=== PATIENT | female | born 1940 | race Caucasian/White ===

== ENCOUNTER 2016-08-16 06:31 | Day surgery (SDC) | payer MEDICARE ==
--- NOTE | ~2016-08-16 | EGD ---
EGD REPORT [facility] [address] [address] NAME: UMBERTO HELTON : 40 STATUS : REG [facility] [place] PAT#: [id number] AGE: 75 ADM/REG DATE : 08/16/16 MR#: [id number] REPORT SERV DATE: 08/16/16 DICTATED BY: MAIRA PALOMARES DATE: 08/16/16 REPORT STATUS : Draft TRANSCRIBED BY: [facility] DATE: 08/16/16 [facility]oscopy Center Patient Name: Umberto Helton Date of : 1940 Attending MD: MAIRA PALOMARES MD Procedure Date No Time: 08/16/2016 Procedure: Colonoscopy Indications: High risk colon cancer surveillance: Personal history of colonic polyps, Last colonoscopy: 2010 Referring MD: MARYA BEY MD Medicines: See the Anesthesia note for documentation of the administered medications Complications: No immediate complications. Procedure: Pre-Anesthesia Assessment: - ASA Grade Assessment: III - A patient with severe systemic disease. After I obtained informed consent, the scope was passed under direct vision. Throughout the procedure, the patient's blood pressure, pulse, and oxygen saturations were monitored continuously. The PCF H190L [id number] was introduced through the anus and advanced to the cecum, identified by appendiceal orifice and ileocecal valve. The colonoscopy was performed without difficulty. The patient tolerated the procedure well. The quality of the bowel preparation was adequate. Findings: The perianal and digital rectal examinations were normal. Internal hemorrhoids were found during retroflexion and were small. Diverticula were found in the sigmoid colon and in the ascending colon. A sessile polyp was found in the ascending colon. The polyp was small in size. The polyp was removed with a cold biopsy forceps. Resection and retrieval were complete. A sessile polyp was found in the sigmoid colon. The polyp was 10 mm in size. The polyp was removed with a hot snare. Resection and retrieval were complete. Impression: - Internal hemorrhoids. - Diverticulosis in the sigmoid colon and in the ascending colon. - One small polyp in the ascending colon. Resected and retrieved. - One 10 mm polyp in the sigmoid colon. Resected and retrieved. EGD REPORT [address] [address] NAME: UMBERTO HELTON : [birth year] STATUS : [facility] [place] PAT#: [id number] AGE: 75 ADM/REG DATE : 08/16/16 MR#: [id number] REPORT SERV DATE: 08/16/16 DICTATED BY: MAIRA PALOMARES DATE: 08/16/16 REPORT STATUS : Draft TRANSCRIBED BY: [employer] DATE: 08/16/16 Recommendation: - Patient has a contact number available for emergencies. The signs and symptoms of potential delayed complications were discussed with the patient. Return to normal activities tomorrow. Written discharge instructions were provided to the patient. - Regular diet. - Continue present medications. - Repeat colonoscopy for surveillance based on pathology results. - FOR YOUR BIOPSY RESULTS: Please go to [email or web address] and register to receive your results via the portal. Your biopsy results will be posted there in about 7 to 10 days. IF you do not see result in 10 days, call office. - Restart coumadin today and get INR in one week by your physician Procedure Code(s): --- Professional --- 38966, Colonoscopy, flexible, proximal to splenic flexure; with removal of tumor(s), polyp(s), or other lesion(s) by snare technique 75182, 59, Colonoscopy, flexible, proximal to splenic flexure; with biopsy, single or multiple Diagnosis Code(s): --- Professional --- K64.8, Other hemorrhoids K57.30, Diverticulosis of large intestine without perforation or abscess without bleeding D12.5, Benign neoplasm of sigmoid colon D12.2, Benign neoplasm of ascending colon Z86.010, Personal history of colonic polyps CPT copyright 2013 [employer]. All rights reserved. The codes documented in this report are preliminary and upon internal audit senior manager review may be revised to meet current compliance requirements. Maira Palomares MD MAIRA PALOMARES MD 08/16/2016 8:30 AM This report has been signed electronically. Number of Addenda: 0 Note Initiated On: 08/16/2016 7:51 AM Scope Withdrawal Time 0 hours 15 minutes 28 seconds EGD REPORT [facility] [address] [address] NAME: UMBERTO HELTON : [birth year] STATUS : [facility] PAT#: [id number] AGE: 75 ADM/REG DATE : 08/16/16 MR#: [id number] REPORT SERV DATE: 08/16/16 DICTATED BY: MAIRA PALOMARES DATE: 08/16/16 REPORT STATUS : Draft TRANSCRIBED BY: [employer] DATE: 08/16/16 [address] [id number]
--- NOTE | ~2016-08-16 | EGD ---
EGD REPORT [facility] [address] [address] NAME: UMBERTO HELTON : 40 [place] [facility] [place] PAT#: [id number] AGE: 75 ADM/REG DATE : 08/16/16 MR#: [id number] REPORT SERV DATE: 08/16/16 DICTATED BY: MAIRA PALOMARES DATE: 08/16/16 REPORT STATUS : Draft [facility]ANS[facility]IBED [facility]: [facility] DATE: 08/16/16 [facility] Patient Name: Umberto Helton Date of : 1940 Attending MD: MAIRA PALOMARES MD Procedure Date No Time: 08/16/2016 Procedure: Upper GI endoscopy Indications: Anemia, Gastro-esophageal reflux disease, Follow-up of acute gastric ulcer Referring MD: MARYA BEY MD Medicines: See the Anesthesia note for documentation of the administered medications Complications: No immediate complications. Procedure: Pre-Anesthesia Assessment: - ASA Grade Assessment: III - A patient with severe systemic disease. After obtaining informed consent, the endoscope was passed under direct vision. Throughout the procedure, the patient's blood pressure, pulse, and oxygen saturations were monitored continuously. The GIF H190 [id number] was introduced through the mouth, and advanced to the second part of duodenum. The upper GI endoscopy was accomplished without difficulty. The patient tolerated the procedure well. Findings: The 2nd part of the duodenum was normal. Biopsies were taken with a cold forceps for histology. A few small sessile polyps with were found in the duodenal bulb. Biopsies were taken with a cold forceps for histology. The cardia and gastric fundus were normal on retroflexion. Mild inflammation was found in the gastric antrum. Biopsies were taken with a cold forceps for histology. A small hiatus hernia was present. Impression: - Normal 2nd part of the duodenum. Biopsied. - A few duodenal polyps. Biopsied. - Gastritis. Biopsied. - Hiatus hernia. Recommendation: - Patient has a contact number available for emergencies. The signs and symptoms of potential delayed complications were discussed with the patient. Return to normal activities tomorrow. Written discharge instructions were provided to the patient. EGD REPORT [address] [address] NAME: UMBERTO HELTON : [birth year] [place] [facility] [place] PAT#: [id number] AGE: 75 ADM/REG DATE : 08/16/16 MR#: [id number] REPORT SERV DATE: 08/16/16 DICTATED BY: MAIRA PALOMARES DATE: 08/16/16 REPORT STATUS : Draft TRANSCRIBED BY: [employer] DATE: 08/16/16 - Regular diet. - Continue present medications. - FOR YOUR BIOPSY RESULTS: Please go to [email or web address] and register to receive your results via the portal. Your biopsy results will be posted there in about 7 to 10 days. IF you do not see result in 10 days, call office. Procedure Code(s): --- Professional --- 09204, Esophagogastroduodenoscopy, flexible, transoral; with biopsy, single or multiple Diagnosis Code(s): --- Professional --- K31.7, Polyp of stomach and duodenum K29.70, Gastritis, unspecified, without bleeding K44.9, Diaphragmatic hernia without obstruction or gangrene D64.9, Anemia, unspecified K21.9, Gastro-esophageal reflux disease without esophagitis K25.3, Acute gastric ulcer without hemorrhage or perforation CPT copyright 2013 [employer]. All rights reserved. The codes documented in this report are preliminary and upon custodial operations manager review may be revised to meet current compliance requirements. Maira Palomares MD MAIRA PALOMARES MD 08/16/2016 8:07 AM This report has been signed electronically. Number of Addenda: 0 Note Initiated On: 08/16/2016 7:55 AM Scope Withdrawal Time 0 hours 0 minutes 0 seconds [address] [address]
--- NOTE | ~2016-08-16 | EGD ---
EGD REPORT [facility] [address] [address] NAME: UMBERTO HELTON : 40 STATUS : REG [facility] [place] PAT#: [id number] AGE: 75 ADM/REG DATE : 08/16/16 MR#: [id number] REPORT SERV DATE: 08/16/16 DICTATED BY: MAIRA PALOMARES DATE: 08/16/16 REPORT STATUS : Draft [facility] DATE: 08/16/16 Endoscopy [facility] Patient Name: Umberto Helton Date of : 1940 Attending MD: MAIRA PALOMARES MD Procedure Date No Time: 08/16/2016 Procedure: Colonoscopy Indications: High risk colon cancer surveillance: Personal history of colonic polyps, Last colonoscopy: 2010 Referring MD: MARYA BEY MD Medicines: See the Anesthesia note for documentation of the administered medications Complications: No immediate complications. Procedure: Pre-Anesthesia Assessment: - ASA Grade Assessment: III - A patient with severe systemic disease. After I obtained informed consent, the scope was passed under direct vision. Throughout the procedure, the patient's blood pressure, pulse, and oxygen saturations were monitored continuously. The PCF H190L [id number] was introduced through the anus and advanced to the cecum, identified by appendiceal orifice and ileocecal valve. The colonoscopy was performed without difficulty. The patient tolerated the procedure well. The quality of the bowel preparation was adequate. Findings: The perianal and digital rectal examinations were normal. Internal hemorrhoids were found during retroflexion and were small. Diverticula were found in the sigmoid colon and in the ascending colon. A sessile polyp was found in the ascending colon. The polyp was small in size. The polyp was removed with a cold biopsy forceps. Resection and retrieval were complete. A sessile polyp was found in the sigmoid colon. The polyp was 10 mm in size. The polyp was removed with a hot snare. Resection and retrieval were complete. Impression: - Internal hemorrhoids. - Diverticulosis in the sigmoid colon and in the ascending colon. - One small polyp in the ascending colon. Resected and retrieved. - One 10 mm polyp in the sigmoid colon. Resected and retrieved. EGD REPORT [address] [address] NAME: UMBERTO HELTON : 40 STATUS : [facility] [place] PAT#: [id number] AGE: 75 ADM/REG DATE : 08/16/16 MR#: [id number] REPORT SERV DATE: 08/16/16 DICTATED BY: MAIRA PALOMARES DATE: 08/16/16 REPORT STATUS : Draft TRANSCRIBED BY: [employer] DATE: 08/16/16 Recommendation: - Patient has a contact number available for emergencies. The signs and symptoms of potential delayed complications were discussed with the patient. Return to normal activities tomorrow. Written discharge instructions were provided to the patient. - Regular diet. - Continue present medications. - Repeat colonoscopy for surveillance based on pathology results. - FOR YOUR BIOPSY RESULTS: Please go to [email or web address] and register to receive your results via the portal. Your biopsy results will be posted there in about 7 to 10 days. IF you do not see result in 10 days, call office. - Restart coumadin today and get INR in one week by your physician Procedure Code(s): --- Professional --- 01699, Colonoscopy, flexible, proximal to splenic flexure; with removal of tumor(s), polyp(s), or other lesion(s) by snare technique 36309, 59, Colonoscopy, flexible, proximal to splenic flexure; with biopsy, single or multiple Diagnosis Code(s): --- Professional --- K64.8, Other hemorrhoids K57.30, Diverticulosis of large intestine without perforation or abscess without bleeding D12.5, Benign neoplasm of sigmoid colon D12.2, Benign neoplasm of ascending colon Z86.010, Personal history of colonic polyps CPT copyright 2013 [employer]. All rights reserved. The codes documented in this report are preliminary and upon development associate review may be revised to meet current compliance requirements. Maira Palomares MD MAIRA PALOMARES MD 08/16/2016 8:30 AM This report has been signed electronically. Number of Addenda: 1 Note Initiated On: 08/16/2016 7:51 AM Scope Withdrawal Time 0 hours 15 minutes 28 seconds EGD REPORT [facility] [address] [address] NAME: UMBERTO HELTON : [birth year] STATUS : [facility] [place] PAT#: [id number] AGE: 75 ADM/REG DATE : 08/16/16 MR#: [id number] REPORT SERV DATE: 08/16/16 DICTATED BY: MAIRA PALOMARES DATE: 08/16/16 REPORT STATUS : Draft [facility] DATE: 08/16/16 Addendum Number: 1 Addendum Date: 08/16/2016 8:34 AM Correction: No diverticula were seen Maira Palomares MD MAIRA PALOMARES MD 08/16/2016 8:34 AM This report has been signed electronically. [address] [address]
[~2016-08-16 06:31] MED LIST: 8 HOUR650 MG PO; ARICEPT10 PO; ARICEPT5 PO; ASAB PO; B12250T PO; BENTYL10 PO; BETAPACE80 PO; CALTRAT600 PO; CENTRUM PO; CENTRUM TAB1 TAB PO; CITRACAL PO; CORDARONE PO; COREG3 PO; COREG6 PO; CYANO1000T PO; DIOV160 PO; DIOVAN HC1 PO; DIOVAN320 MG PO; DRAMAMINE25 MG PO; GOODY'S BODY P1 EACH PO; GOODY'S EX-STR1 EAC1 PO; HALF81 PO; HYGROTON 25 MG25 MG OR; IMDUR30 PO; JANTOVEN2 MG PO; JANTOVEN2.5 MG PO; JANTOVEN3 MG; JANTOVEN3 MG PO; JANTOVEN5 MG PO; LIPITOR40 PO; LIPITOR80 MG PO; LOP25 PO; LOVENOX80 SC; MCZ25 PO; MOBIC7.5 PO; MULTIVITAMI1 PO; NAMENDA5 PO; NORV5 PO; PREDNISONE TAPER; PROTONIX PO; TYLENOL 8 HR650 MG PO; TYLENOL ARTH650 MG PO; VITAMIN B-121000 MC1 PO; VITAMIN D1000 UNI1 PO; VITAMIN D31000 UNIT PO
== END 2016-08-16 23:59 | disposition home or self-care (01) ==
LOC: DMU 06:31
PROVIDERS: Internal Medicine Gastroenterology
PROC: 0DB68ZX Excision of Stomach, Via Natural or Artificial Opening Endoscopic, Diagnostic (ICD-10-PCS; 2016-08-16)
PROC: 0DBK8ZZ Excision of Ascending Colon, Via Natural or Artificial Opening Endoscopic (ICD-10-PCS; principal; 2016-08-16 08:00)
PROC: 0DBN8ZZ Excision of Sigmoid Colon, Via Natural or Artificial Opening Endoscopic (ICD-10-PCS; 2016-08-16 08:00)
PROC: 0DB98ZX Excision of Duodenum, Via Natural or Artificial Opening Endoscopic, Diagnostic (ICD-10-PCS; 2016-08-16 08:00)
DX: Z12.11 Encounter for screening for malignant neoplasm of colon (principal); Q40.2 Other specified congenital malformations of stomach; D12.5 Benign neoplasm of sigmoid colon; K63.5 Polyp of colon; K64.8 Other hemorrhoids; K57.30 Diverticulosis of large intestine without perforation or abscess without bleeding; K31.7 Polyp of stomach and duodenum; K44.9 Diaphragmatic hernia without obstruction or gangrene; D64.9 Anemia, unspecified; K29.70 Gastritis, unspecified, without bleeding; K21.9 Gastro-esophageal reflux disease without esophagitis; K25.3 Acute gastric ulcer without hemorrhage or perforation; Z86.010 Personal history of colon polyps; I10 Essential (primary) hypertension; I48.91 Unspecified atrial fibrillation; Z95.0 Presence of cardiac pacemaker; R42 Dizziness and giddiness; R41.3 Other amnesia; Z90.89 Acquired absence of other organs; M19.90 Unspecified osteoarthritis, unspecified site; Z95.5 Presence of coronary angioplasty implant and graft; Z90.710 Acquired absence of both cervix and uterus; Z98.890 Other specified postprocedural states; Z90.49 Acquired absence of other specified parts of digestive tract; Z79.899 Other long term (current) drug therapy; Z79.01 Long term (current) use of anticoagulants
CPT/HCPCS: 88305

== ENCOUNTER 2016-10-23 22:41 | Emergency (ER) | payer MEDICARE ==
[2016-10-23 14:24] LABS: BASOPHILS 0.2 %; BASOPHILS ABSOLUTE 0.03 10/3/uL (0.0-0.16); EOSINOPHILS 2.2 %; EOSINOPHILS ABSOLUTE 0.28 10/3/uL (0.0-0.53); HEMATOCRIT 34.8 % (36.0-48.0); HEMOGLOBIN 11.1 g/dL (12.0-16.0); IMMATURE GRANULOCYTES 0.2 %; IMMATURE GRANULOCYTES ABSOLUTE 0.02 10/3/uL (0.0-0.11); LYMPHOCYTES 13.1 %; LYMPHOCYTES ABSOLUTE 1.66 10/3/uL (0.67-4.30); MEAN CORPUS HGB CONC 31.9 g/dL (32.0-36.0); MEAN CORPUSCULAR HEMOGLOB 30.3 pg (26.0-34.0); MEAN CORPUSCULAR VOLUME 95.1 fL (80-100); MEAN PLATELET VOLUME 9.9 fL (9.2-13.0); MONOCYTES ABSOLUTE 0.63 10/3/uL (0.21-1.20); NEUTROPHILS 79.3 %; NEUTROPHILS ABSOLUTE 10.03 10/3/uL (2.02-8.40); PLATELET COUNT 255 10/3/uL (150-400); RBC DISTRIBUTION WIDTH 14.8 % (12.0-16.0); RED CELL COUNT 3.66 10/6/uL (4.0-5.6)
[2016-10-23 14:25] LABS: ER CBC TAT 0 Hrs 07 Mins; MANUAL DIFF NO %; WHITE BLOOD CELLS 12.7 10/3/uL (4.5-10.5)
[2016-10-23 14:32] LABS: INTERNATIONAL NORMAL RATI 2.2 UNITS (-); PROTIME (NOT ORD) 24.2 SEC (12.0-14.5)
[2016-10-23 14:33] LABS: PARTIAL THROMBO TIME 39.4 SEC (22.5-37.2)
[2016-10-23 14:43] LABS: BUN (BLOOD UREA NITROGEN) 16 MG/DL (6-23); CHEST PAIN PROFILE TAT 0 Hrs 25 Mins; CHLORIDE, SERUM 113 MMOL/L (96-112); CO2 (CARBON DIOXIDE) 26 MMOL/L (24-34); CREATININE 1.25 MG/DL (0.55-1.02); GFR AFRICAN AMERICAN 48 ML/MIN (>=60); GFR NON AFRICAN AMERICAN 42 ML/MIN (>=60); GLUCOSE, SERUM 95 MG/DL (60-99); SODIUM, SERUM 145 MMOL/L (135-148); TROPONIN I <0.02 NG/ML (<0.05)
== END 2016-10-23 22:45 | disposition home or self-care (01) ==
LOC: ER 22:41
PROVIDERS: Emergency Medicine
DX: I48.91 Unspecified atrial fibrillation (principal); Z87.891 Personal history of nicotine dependence; I10 Essential (primary) hypertension; Z95.1 Presence of aortocoronary bypass graft; Z95.0 Presence of cardiac pacemaker; J44.9 Chronic obstructive pulmonary disease, unspecified; Z79.899 Other long term (current) drug therapy; Z79.01 Long term (current) use of anticoagulants
CPT/HCPCS: 71020; 80048; 83735; 84484; 85025; 85610; 85730; 93005; 93225; 99285